=== PATIENT | female | born 1965 | race Caucasian/White ===

== ENCOUNTER 2021-09-15 07:54 | Emergency (ER) | payer OTHER ==
[~2021-09-15] VITALS: Ht 157.5 cm; Wt 88.5 kg
[~2021-09-15 07:54] MED LIST: TYLENOL500 MG GT; Z.0.LEVOXYL100 MCG PO
[2021-09-15] MEDS ORDERED: CASIRIVIMAB/IMDEVIMAB 10 ML in SODIUM CHLORIDE 0.9% 100 ML IV ONE (08:00)
[2021-09-15 09:07] VITALS: BP 134/76
== END 2021-09-15 09:08 | disposition home or self-care (01) ==
LOC: ER 08:00
DX: U07.1 COVID-19 (principal)
CPT/HCPCS: 99283; J7050

== ENCOUNTER → 2022-12-10 | Day surgery (SDC) | payer OTHER ==
[2022-12-08 12:20] LABS: BASOPHILS % 0.6 % (0.0-1.0); EOSINOPHILS # (AUTO) 0.1 (0.0-0.4); EOSINOPHILS % 1.4 % (0.0-6.0); HEMATOCRIT 44.1 % (34.2-44.1); HEMOGLOBIN 12.9 g/dL (12.0-16.0); LYMPHOCYTES # (AUTO) 1.8 (1.0-3.2); LYMPHOCYTES % 24.4 % (18.0-39.1); MEAN CORPUSCULAR HEMOGLOBIN 25.6 pg (28-32); MEAN CORPUSCULAR HGB CONC 29.3 g/dL (31-35); MEAN CORPUSCULAR VOLUME 87.7 fL (81-99); MONOCYTES # (AUTO) 0.6 (0.2-0.8); MONOCYTES % 7.6 % (4.4-11.3); NEUTROPHILS # (AUTO) 4.8 (2.1-6.9); NEUTROPHILS % 65.9 % (38.7-80.0); PLATELET COUNT 270 x10e3/uL (140-360); RED BLOOD COUNT 5.03 x10e6/uL (3.6-5.1); RED CELL DISTRIBUTION WIDTH 12.4 % (11.7-14.4)
[~2022-12-10] MED LIST changes: +DIAZEPAM2 MG PO; +HYDROCODONE PO; +LIDOCAINE HCL 2% LOCAL INJ 5 ML SDV VIAL INJ ONE; +POVIDONE IODINE 0.05% 0.05 % ML PO ONE; +PROPOFOL IV EMULSION 10 MG/ML 20 ML VIAL ONE; +PROPOFOL IV EMULSION 50 ML IV ONE
[2022-12-10 09:28] VITALS: BP 125/66
== END | disposition home or self-care (01) ==
LOC: OR 07:04
PROVIDERS: ATTEND Internal Medicine Gastroenterology
DX: R19.5 Other fecal abnormalities (principal); D12.5 Benign neoplasm of sigmoid colon; K59.09 Other constipation; K64.8 Other hemorrhoids; Z71.3 Dietary counseling and surveillance; M32.9 Systemic lupus erythematosus, unspecified; E03.9 Hypothyroidism, unspecified; M54.9 Dorsalgia, unspecified; Z01.810 Encounter for preprocedural cardiovascular examination; Z01.812 Encounter for preprocedural laboratory examination; Z79.899 Other long term (current) drug therapy; Z68.38 Body mass index [BMI] 38.0-38.9, adult
CPT/HCPCS: 36415; 45385; 85025; 93005; J2001; J2704 ×2; 45378